=== PATIENT | female | born 1965 | race Caucasian/White ===

== ENCOUNTER 2021-03-11 15:04 | Emergency (ER) | payer SELFPAY ==
[~2021-03-11 15:04] MED LIST: Lactated Ringer's 1,000 ML BAG ONE
[2021-03-11] MEDS ORDERED: Prochlorperazine 10 MG/2 ML VIAL ONE (16:00)
[2021-03-11] MEDS ORDERED: diphenhydrAMINE 50 MG/ML VIAL ONE (16:00)
[2021-03-11] MEDS ORDERED: Lactated Ringer's 1,000 ML ONE (16:00)
[2021-03-11 16:54] LABS: #Basophils 0.1 thou/uL (0.0-0.2); #Lymphocytes 1.7 thou/uL (1.20-3.40); #Monocytes 0.9 thou/uL (0.11-0.59); %Basophils 0.6 % (0.0-1.0); %Eosinophils 0.1 % (0.0-10.0); %Monocytes 7.9 % (0.0-10.0); %Neutrophils 75.5 % (42.0-75.0); ALT (SGPT) 13 U/L (8-55); AST (SGOT) 17 U/L (5-34); Albumin 5.2 g/dL (3.5-5.0); Alkaline Phosphatase 94 U/L (40-110); Anion Gap 24 mmol/L (10-20); BUN (Urea Nitrogen) 18 mg/dL (9.8-20.1); Bilirubin, Total 1.2 mg/dL (0.2-1.2); Calc. Creatinine Clearance 0 mL/min (70-130); Calcium 10.8 mg/dL (7.8-10.44); Carbon Dioxide 31 mmol/L (22-29); Chloride 91 mmol/L (98-107); Giant Platelets SLIGHT; Globulin 4.1 g/dL (2.4-3.5); Glucose 120 mg/dL (70-105); Hemoglobin 15.9 g/dL (12.0-16.0); Large Platelets MODERATE; Lipase 28 U/L (8-78); MDiff Complete? YES; Mean Corpuscular HGB CONC 32.1 g/dL (32.0-36.0); Mean Corpuscular Hemoglobin 30.1 pg (27.0-31.0); Mean Corpuscular Volume 93.7 fL (78.0-98.0); Mean Platelet Volume 12.3 fL (7.4-10.4); Platelet Count 318 thou/uL (130-400); Platelet Morphology Comment Appears Adequate; Protein, Total 9.3 g/dL (6.0-8.3); RBC Distribution Width 11.4 % (11.5-14.5); Red Blood Cell (RBC) Count 5.27 mill/uL (4.20-5.40); Sodium 143 mmol/L (136-145); White Blood Cell (WBC) Count 10.7 thou/uL (4.8-10.8)
== END 2021-03-11 17:45 | disposition home or self-care (01) ==
LOC: MADERS 15:04
DX: E86.0 Dehydration (principal); F12.988 Cannabis use, unspecified with other cannabis-induced disorder; R00.0 Tachycardia, unspecified; R11.2 Nausea with vomiting, unspecified; Z87.891 Personal history of nicotine dependence
CPT/HCPCS: 80053; 83605; 83690; 85025; 96374; 96375; J0780; J1200; J7120